=== PATIENT | male | born 1970 | race Caucasian/White ===

== ENCOUNTER 2022-02-28 04:14 | Inpatient (IN) | payer MEDICAID ==
[~2022-02-28] VITALS: Ht 165.1 cm; Wt 72.6 kg
[~2022-02-28 04:14] MED LIST: MIRT-89 PO
[2022-02-28] MEDS ORDERED: FAMOTIDINE 20MG/2ML VIAL IV STA (05:06)
[2022-02-28] MEDS ORDERED: ONDANSETRON HCL 4MG/2ML INJ IV STA (05:06)
[2022-02-28] MEDS ORDERED: METOCLOPRAMIDE HCL 10MG/2ML VIAL IV STA (05:06)
[2022-02-28] MEDS ORDERED: SODIUM CHLORIDE 0.9% 1,000 ML IV ONE (05:15)
[2022-02-28 05:37] LABS: BASOPHILS % 0.4 % (0.0-2.0); EOSINOPHILS % 0.1 % (0.0-5.0); HEMATOCRIT. 47.4 % (42.0-52.0); HEMOGLOBIN. 16.1 g/dL (14.0-18.0); LYMPHOCYTES % 19.5 % (20.0-50.0); MEAN CORPUSCULAR HEMOGLOBIN 31.3 pg (28.0-32.0); MEAN CORPUSCULAR VOLUME 92.2 fL (80.0-94.0); MEAN PLATELET VOLUME 10.1 fl (7.4-10.4); MONOCYTES % 9.3 % (2.0-8.0); NEUTROPHILS % 70.7 % (40.0-76.0); PLATELET 224 x1000/uL (130-400); RED BLOOD CELL COUNT 5.14 mill/uL (4.7-6.1); RED CELL DISTRIBUTION WIDTH 12.7 % (11.6-14.6)
[2022-02-28 05:51] LABS: CHLORIDE 97 mEq/L (98-107)
[2022-02-28] MEDS ORDERED: MORPHINE SULFATE 4 MG/ML CPJ (NOT FOR IM USE) IV ONE (07:45)
[2022-02-28] MEDS ORDERED: MAGNESIUM/ALUMINUM HYDROXIDE/SIMETHICONE 30ML UDC PO PRN (11:45)
[2022-02-28] MEDS ORDERED: ACETAMINOPHEN 325MG TABLET PO PRN ×2 (11:45)
[2022-02-28] MEDS ORDERED: DEXTROSE 50% WATER 50ML SYRINGE IV PRN (11:45)
[2022-02-28] MEDS ORDERED: CLONIDINE 0.1MG TABLET PO PRN (11:45)
[2022-02-28] MEDS ORDERED: KCL 20MEQ/100ML PREMIX 100 ML IV ONE (11:45)
[2022-02-28] MEDS ORDERED: NITROGLYCERIN 0.4MG TABLET SL SL PRN (11:45)
[2022-02-28] MEDS ORDERED: ZOLPIDEM TARTRATE 5MG TABLET PO PRN (11:45)
[2022-02-28] MEDS ORDERED: DOCUSATE SODIUM 100MG CAPSULE PO PRN (11:45)
[2022-02-28] MEDS ORDERED: GUAIFENESIN 200MG/10ML SUGAR FREE UDC PO PRN (11:45)
[2022-02-28] MEDS ORDERED: IPRATROPIUM/ALBUTEROL 0.5-3(2.5)MG/3ML NEB NEB PRN (11:45)
[2022-02-28] MEDS ORDERED: ONDANSETRON HCL 4MG/2ML INJ IV PRN (11:45)
[2022-02-28 12:00] VITALS: BP 140/89
[2022-02-28 12:36] LABS: TOTAL IRON BINDING CAPACITY 253 ug/dL (250-450)
[2022-02-28] MEDS: INSULIN LISPRO 100 UNITS/ML SUBCUT SCH ×3 (12:40→20:25)
[2022-02-28] MEDS: METOCLOPRAMIDE 10MG/10 ML UDC PO SCH ×2 (12:47→17:41)
[2022-02-28] MEDS: DEXT 5%/LACTATED RINGERS 1,000 ML IV SCH ×2 (12:47→20:25)
[2022-02-28] MEDS: POTASSIUM CHLORIDE 20MEQ TABLET SR PO NR (12:47)
[2022-02-28] MEDS: BLOOD SUGAR DIAGNOSTIC STRIP TEST SCH ×3 (12:48→20:25)
[2022-02-28] MEDS ORDERED: KCL 20MEQ/100ML PREMIX 100 ML IV NR (13:00)
[2022-02-28 13:09] LABS: FOLIC ACID (FOLATE) SERUM 19.3 ng/mL (>5.38)
[2022-02-28 14:20] VITALS: BP 136/76
[2022-02-28] MEDS: ENOXAPARIN 30MG/0.3ML SYR SUBCUT SCH (14:32)
[2022-02-28 16:00] VITALS: BP 117/78
[2022-02-28] MEDS ORDERED: INSLIS SUBCUT (16:43)
[2022-02-28 20:00] VITALS: BP 133/87
[2022-03-01] VITALS: BP 115/73
[2022-03-01 04:00] VITALS: BP 104/53
[2022-03-01] MEDS: DEXT 5%/LACTATED RINGERS 1,000 ML IV SCH ×3 (04:43→19:45)
[2022-03-01 06:17] LABS: BASOPHILS % 0.7 % (0.0-2.0); EOSINOPHILS % 4.7 % (0.0-5.0); HEMATOCRIT. 42.9 % (42.0-52.0); HEMOGLOBIN. 14.7 g/dL (14.0-18.0); LYMPHOCYTES % 48.4 % (20.0-50.0); MEAN CORPUSCULAR HEMOGLOBIN 31.6 pg (28.0-32.0); MEAN CORPUSCULAR VOLUME 92.2 fL (80.0-94.0); MEAN PLATELET VOLUME 10.3 fl (7.4-10.4); MONOCYTES % 8.5 % (2.0-8.0); NEUTROPHILS % 37.7 % (40.0-76.0); PLATELET 203 x1000/uL (130-400); RED BLOOD CELL COUNT 4.65 mill/uL (4.7-6.1); RED CELL DISTRIBUTION WIDTH 12.9 % (11.6-14.6)
[2022-03-01] MEDS: BLOOD SUGAR DIAGNOSTIC STRIP TEST SCH ×4 (06:32→20:21)
[2022-03-01] MEDS: INSULIN LISPRO 100 UNITS/ML SUBCUT SCH ×4 (06:32→20:21)
[2022-03-01] MEDS: METOCLOPRAMIDE 10MG/10 ML UDC PO SCH ×3 (06:32→16:42)
[2022-03-01 06:44] LABS: CHLORIDE 102 mEq/L (98-107)
[2022-03-01 07:01] LABS: PHOSPHORUS 3.8 mg/dL (2.5-4.9)
[2022-03-01 08:00] VITALS: BP 95/72
[2022-03-01] MEDS ORDERED: PANTOPRAZOLE SODIUM 40 MG/VIAL IV SCH (09:00)
[2022-03-01 12:00] VITALS: BP 106/76
[2022-03-01] MEDS: POTASSIUM CHLORIDE 20MEQ TABLET SR PO NR (12:32)
[2022-03-01] MEDS: ENOXAPARIN 30MG/0.3ML SYR SUBCUT SCH ×2 (14:02→14:07)
[2022-03-01 16:00] VITALS: BP 112/81
[2022-03-01] MEDS ORDERED: POTASSIUM CHLORIDE 20MEQ/PACKET PO NR (18:00)
== END 2022-03-01 20:55 | disposition left against medical advice (07) | DRG 48 ==
LOC: ER 04:14 → EDBEDREQTM 07:42 → EDBEDREQ 07:42 → 8WST 07:44 → ENRESERV 10:58
PROVIDERS: ADMIT Internal Medicine; ATTEND Internal Medicine
DX: E11.43 Type 2 diabetes mellitus with diabetic autonomic (poly)neuropathy (principal); N17.0 Acute kidney failure with tubular necrosis; K31.84 Gastroparesis; E87.1 Hypo-osmolality and hyponatremia; E11.65 Type 2 diabetes mellitus with hyperglycemia; F41.9 Anxiety disorder, unspecified; R74.01 Elevation of levels of liver transaminase levels; E87.6 Hypokalemia; Z20.822 Contact with and (suspected) exposure to COVID-19; I10 Essential (primary) hypertension; Z53.20 Procedure and treatment not carried out because of patient's decision for unspecified reasons; Z76.5 Malingerer [conscious simulation]; Z79.4 Long term (current) use of insulin; Z88.8 Allergy status to other drugs, medicaments and biological substances; Z79.899 Other long term (current) drug therapy
CPT/HCPCS: 36415; 80053; 82607; 82746; 82962; 83036; 83540; 83550; 83735; 84100; 85025; 87426; 93970; 99291; C9113; J1650; J1815; J2270; J2405; J2765; J3480; J3490; J7030; J8597

== ENCOUNTER 2023-07-13 11:10 | Emergency (ER) | payer MEDICAID ==
[~2023-07-13] VITALS: Ht 167.6 cm; Wt 60.0 kg
[~2023-07-13 11:10] MED LIST changes: +INSLIS SUBCUT
[2023-07-13 11:22] VITALS: O2SAT 100
[2023-07-13 12:31] LABS: BASOPHILS % 0.8 % (0.0-2.0); EOSINOPHILS % 0.7 % (0.0-5.0); HEMATOCRIT. 39.3 % (42.0-52.0); HEMOGLOBIN. 13.5 g/dL (14.0-18.0); LYMPHOCYTES % 25.9 % (20.0-50.0); MEAN CORPUSCULAR HEMOGLOBIN 32.5 pg (28.0-32.0); MEAN CORPUSCULAR HGB CONC 34.5 g/dL (31.0-37.0); MEAN CORPUSCULAR VOLUME 94.2 fL (80.0-94.0); MEAN PLATELET VOLUME 7.8 fl (7.4-10.4); MONOCYTES % 6.5 % (2.0-8.0); NEUTROPHILS % 66.1 % (40.0-76.0); PLATELET 318 x1000/uL (130-400); RED BLOOD CELL COUNT 4.17 mill/uL (4.7-6.1); RED CELL DISTRIBUTION WIDTH 12.8 % (11.6-14.6); WHITE BLOOD COUNT 6.7 x1000/uL (4.5-11.0)
[2023-07-13] MEDS ORDERED: MORPHINE SULFATE 4 MG/ML CPJ (NOT FOR IM USE) IV STA (12:41)
[2023-07-13] MEDS ORDERED: ONDANSETRON HCL 4MG/2ML INJ IV STA (12:41)
[2023-07-13] MEDS ORDERED: LORAZEPAM 2MG/ML CPJ IV ONE (12:45)
[2023-07-13] MEDS ORDERED: SODIUM CHLORIDE 0.9% 1,000 ML IV ONE (12:45)
[2023-07-13 12:53] LABS: CHLORIDE 106 mEq/L (98-107); INDEX HEMOLYSI 1 (1-3); INDEX ICTERIC 1 (1-4); INDEX LIPEMIC 1 (1-3); POTASSIUM 4.1 mEq/L (3.5-5.1); SODIUM 139 mEq/L (136-145)
[2023-07-13 13:00] LABS: ALANINE AMINOTRANSFERASE 44 IU/L (13-61); ALBUMIN 3.5 g/dL (3.4-5.0); ASPARTATE AMINOTRANSFERASE 66 IU/L (15-37); BILIRUBIN TOTAL 0.5 mg/dL (0.1-1.0); CARBON DIOXIDE 27 mEq/L (21-32); CREATININE 1.1 mg/dL (0.6-1.3); GLUCOSE 212 mg/dL (70-105); PROTEIN TOTAL 7.2 g/dL (6.0-8.3); UREA NITROGEN BLOOD 28 mg/dL (7-21)
[2023-07-13 13:41] LABS: TROPONIN I HIGH SENSITIVITY 13 ng/L (<78)
[2023-07-13] MEDS ORDERED: HYDR-459 MT (14:39)
[2023-07-13] MEDS ORDERED: ESOM20CA37 PO (14:39)
[2023-07-13 15:57] VITALS: BP 112/87; PULSE 88; RESP 18; TEMP 97.5
== END 2023-07-13 16:02 | disposition home or self-care (01) ==
LOC: ER 11:10
DX: K80.20 Calculus of gallbladder without cholecystitis without obstruction (principal); R10.84 Generalized abdominal pain; F41.9 Anxiety disorder, unspecified; E11.9 Type 2 diabetes mellitus without complications; I10 Essential (primary) hypertension; Z90.49 Acquired absence of other specified parts of digestive tract; Z98.890 Other specified postprocedural states; Z88.0 Allergy status to penicillin
CPT/HCPCS: 80053; 83690; 85025; 85610; 84484; 36415; 96361; 96374; 96375; 99285; J2060; J2405; J2270; J7030; Z7610 ×3